=== PATIENT | female | born 1990 ===

== ENCOUNTER 2019-06-30 12:51 | Emergency (ER) | payer BC ==
[2019-06-30 13:28] VITALS: BP 129/84
--- NOTE | 2019-06-30 13:51 | UC ---
Headache HPI - HPI Summary HPI Summary: 28 year old female presents with a complaint of headache started 3 days ago and is mostly on the right side of her head. She noted slight nausea yesterday, none today. No vomiting, + photophobia and hyperacousis. Denies visual disturbance nor focal weakness. Took Excedrin at 9am today. - History Of Current Complaint Chief Complaint: UCHeadache Stated Complaint: sever head ache Time Seen by Provider: 06/30/19 13:22 Hx Obtained From: Patient Hx Last Menstrual Period: does not have d/t BCP ?: No Onset/Duration: Gradual Onset, Lasting Days - three Initially Headache Was: Mild Currently Pain Is: Moderate - not "worse headache ever" Pain Intensity: 5 Timing: Constant Character: Throbbing - right side of head Aggravating Factor(s): Position Change Allevating Factor(s): Rest, Position Change - laying on right side. Associated Signs And Symptoms: Positive: Nausea - none currenly. Negative: Dizziness, Vomiting, Sinus Pressure, Fever, Neck Pain, Neck Stiffness, Decreased LOC, Visual Changes - Risk Factors Meningitis Risk Factors: Negative - Allergies/Home Medications Allergies/Adverse Reactions: Allergies Allergy/AdvReac Type Severity Reaction Status Date / Time No Known Allergies Allergy Verified 06/30/19 13:28 Home Medications: Home Medications Cetirizine* [ZyrTEC 10 MG TAB*] 10 mg PO DAILY 06/30/19 [History Confirmed 06/30] Escitalopram Oxalate [Lexapro] 20 mg PO DAILY 06/30/19 [History Confirmed ] Norgestimate-Ethinyl Estradiol [Sprintec 28 0.25-35 mg-Mcg] 1 tab PO DAILY 06/30 [History Confirmed 06/30/19] PMH/Surg Hx/FS Hx/Imm Hx Previously Healthy: Yes - Surgical History Surgical History: None - Family History Known Family History: Positive: Non-Contributory - Social History Alcohol Use: None Substance Use Type: None Smoking Status (MU): Never Smoked Tobacco Review of Systems All Other Systems Reviewed And Are Negative: Yes Constitutional: Negative: Fever, Chills, Fatigue Skin: Negative: Rash, Bruising Eyes: Negative: Blurred Vision, Diplopia, Photophobia ENT: Positive: Negative Respiratory: Negative: Shortness Of Breath, Cough Cardiovascular: Negative: Palpitations, Chest Pain Gastrointestinal: Negative: Abdominal Pain, Vomiting, Diarrhea, Nausea Genitourinary: Positive: Negative Motor: Negative: Decreased ROM, Weakness Neurovascular: Negative: Decreased Sensation, Decreased Pulses Musculoskeletal: Positive: Negative Neurological: Positive: Headache. Negative: Weakness, Paresthesia, Numbness Psychological: Positive: Negative Is Patient Immunocompromised?: No Physical Exam Triage Information Reviewed: Yes Appearance: Well-Appearing Vital Signs: Initial Vital Signs Temp 99.4 F 06/30/19 13:21 Pulse 81 06/30/19 13:21 Resp 16 06/30/19 13:21 BP 129/84 06/30/19 13:21 Pulse Ox 100 06/30/19 13:21 Vital Signs Reviewed: Yes Eyes: Positive: Conjunctiva Clear ENT: Positive: Pharynx normal, TMs normal. Negative: Nasal congestion, Nasal drainage Neck: Positive: Supple, Nontender, No Lymphadenopathy. Negative: Nuchal Rigidity Respiratory: Positive: Lungs clear, Normal breath sounds, No respiratory distress. Negative: Crackles, Rhonchi, Wheezing Cardiovascular: Positive: RRR, No Murmur Abdomen Description: Positive: Nontender, Soft. Negative: CVA Tenderness (R), CVA Tenderness (L), Distended Musculoskeletal: Positive: Strength Intact, ROM Intact Neurological: Positive: Alert, Muscle Tone Normal. Negative: Fatigued, Lethargic, Unresponsive Psychological Exam: Normal Skin Exam: Normal Headache Course/Dx - Course Course Of Treatment: No focal deficits, migrainous vs tension headache. Responded well to toradol injection. - Differential Dx/Diagnosis Differential Diagnosis/HQI/PQRI: Migraine, Sinus Headache, Tension Headache Provider Diagnosis: Headache Discharge ED - Sign-Out/Discharge Documenting (check all that apply): Patient Departure All imaging exams completed and their final reports reviewed: Yes - Discharge Plan Condition: Stable Disposition: HOME Patient Education Materials: Acute Headache (ED) Referrals: Jenni Rios NP [Primary Care Provider] - Additional Instructions: Utilize Excedrin as needed for mild/moderate headache. If your symptoms acutely worsen, report to the Emergency Department. If the headache persists, follow-up with your Primary Care Physician. - Billing Disposition and Condition Condition: STABLE Disposition: Home
[2019-06-30] MEDS ORDERED: Ketorolac *IM* INJ* 60 MG/2 ML VIAL IM ONE (14:03)
== END 2019-06-30 14:43 | disposition home or self-care (01) ==
LOC: UCCORT 12:51
DX: R51 Headache (principal)
CPT/HCPCS: 96372; 99211; G0463; J1885